=== PATIENT | female | born 2000 | race Two or more races ===

== ENCOUNTER 2021-09-03 09:53 | Emergency (ER) | payer OTHER, SELFPAY ==
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
[2021-09-03 09:55] VITALS: BP 139/83; PULSE 81; RESP 18; TEMP 37; O2SAT 98; BMI 34.9
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
[2021-09-03] MEDS: Ibuprofen 600 MG TABLET PO (11:41)
== END 2021-09-03 12:01 | disposition home or self-care (01) ==
PROVIDERS: Emergency Provider Emergency Medicine
DX: R51.9 Headache, unspecified (principal); S29.012A Strain of muscle and tendon of back wall of thorax, initial encounter; V47.6XXA Car passenger injured in collision with fixed or stationary object in traffic accident, initial encounter; Y93.89 Activity, other specified; Y92.415 Exit ramp or entrance ramp of street or highway as the place of occurrence of the external cause; Y99.9 Unspecified external cause status
CPT/HCPCS: 70450; 99283; 99284

== ENCOUNTER 2024-10-06 02:19 | Emergency (ER) | payer OTHER, SELFPAY ==
--- NOTE | ~2024-10-06 | CT_ITS ---
CLINICAL HISTORY: nausea CT ABDOMEN AND PELVIS WITH CONTRAST COMPARISON: None provided. FINDINGS: No evidence of a bowel obstruction or free air. Portions of the colon are underdistended which limits assessment. No pericolonic inflammation. No evidence of appendicitis. Appendix measures 5 mm in caliber on coronal image 32. Small amount of pelvic free fluid. No loculated fluid collection. A right ovarian follicle measures 1.4 cm on axial image 664 of series 4. Uterus and adnexa are otherwise unremarkable. Urinary bladder is underdistended. The lung bases are unremarkable. No focal liver lesion. Faint density in the gallbladder measures 1.9 cm on axial image 38. Cholelithiasis is questioned. Gallbladder is mildly distended. No pericholecystic inflammation. Common bile duct is not dilated. Stomach is significantly underdistended which precludes accurate assessment. No CT evidence of acute pancreatitis. Spleen is mildly enlarged and measures 11.7 cm on axial image 163. Adrenal glands are unremarkable. Contrast is noted within portions of the renal collecting systems. No hydronephrosis bilaterally. Abdominal aorta is normal in caliber, without evidence of an aneurysm or dissection. Nonenlarged lymph nodes are noted in the mesentery. No evidence of a bowel containing hernia. The bone windows demonstrate no acute abnormalities. IMPRESSION: 1. Faint density in the gallbladder measures 1.9 cm. Cholelithiasis is questioned. A right upper quadrant ultrasound in the ER is advised for further assessment. 2. A right ovarian follicle measures 1.4 cm. There is a small amount of pelvic free fluid, likely physiologic. 3. No evidence of a bowel obstruction or free air. No pericolonic inflammation. No evidence of appendicitis. 4. Mild splenomegaly. 5. Additional findings are detailed above. This document has been electronically signed by: Octavio Dominguez M.D. on 10/06/2024 05:42:10
--- NOTE | ~2024-10-06 | US_ITS ---
EXAMINATION: US ABDOMEN LIMITED CLINICAL INFORMATION: Right upper quadrant pain.. COMPARISON: None available. TECHNIQUE: Real-time ultrasound of the right upper quadrant abdomen using grayscale technique. FINDINGS: Multiple layering intraluminal hyperechoic lesions with posterior shadowing in the gallbladder. The gallbladder wall measures 4 mm in maximal thickness. No pericholecystic fluid collection. Common bile duct measures 3 mm. Right kidney measures 10 cm. Normal echotexture. Normal renal cortical thickness. No hydronephrosis. No gross solid or cystic lesion. No peripancreatic fluid collections. Liver measures 13 cm per technologist. Limited evaluation of the liver demonstrated no gross solid or cystic lesion. No ascites. US/US abdomen limited IMPRESSION: Cholelithiasis and gallbladder wall thickening. Concerning for acute calculus cholecystitis in the correct clinical settings. No gross choledocholithiasis. No ascites. No hydronephrosis, right kidney. Electronically signed by: Bradly Martin MD 10/06/2024 08:29 AM EDT
--- NOTE | 2024-10-06 05:12 | ED_ITS ---
HPI - Abdominal Pain General Chief Complaint: Abdominal Pain Stated Complaint: Abd Pain Time Seen by Provider: 10/06/24 05:23 Source: patient Mode of arrival: ambulatory Limitations: no limitations History of Present Illness ED Provider: Dr. Zoey Cuenca and Ssuana Toledo HPI narrative: I received sign-out from my colleague DAVID Toledo during down time patient came in complaining of acute onset right upper quadrant pain with nausea vomiting after eating fast food. all of patient's labs and imaging pending Related Data Previous Rx's ?Medication ?Instructions ?Recorded amoxicillin 875 mg-potassium 1 tab PO BID #20 tabs 01/21 clavulanate 125 mg tablet ibuprofen 800 mg tablet 800 mg PO Q8H PRN pain #10 t abs 10/06/24 ketorolac 10 mg tablet 10 mg PO TID PRN pain #10 ta bs 10/06/24 ondansetron 4 mg disintegrating 4 mg PO Q6H PRN nausea and 10/06/24 tablet vomiting #14 tabs Allergies Allergy/AdvReac Type Severity Reaction Status Date / Time No Known Allergies Allergy Verified 10/06/24 05:44 Review of Systems Review of Systems Constitutional : No Weight loss, No Fever, No Chills, No Night Sweats, No Fatigue, No Malaise ENT/Mouth : No Hearing loss, No Ear Pain, No Nasal Congestion, No Sinus Pain, No Hoarseness, No sore throat, No Rhinorrhea, No Swallowing Difficulty Eyes: No Eye Pain, No Swelling, No Redness, No Foreign Body, No Discharge, No Vision Changes Cardiovascular : No Chest Pain, No SOB, No Dyspnea on Exertion, No Orthopnea, No Edema, No Palpitations Respiratory : No Cough, No Sputum, No Wheezing, No Smoke Exposure, No Dyspnea Gastrointestinal : Complaining of nausea, vomiting, no diarrhea, complaining of right upper quadrant pain Genitourinary : no irregular bleeding, No Dysuria, No Urinary Frequency, No Hematuria, No Urinary Incontinence, No Urgency, No Flank Pain, No Urinary Flow Changes, No Hesitancy Musculoskeletal : No joint pain, No Myalgias, No Joint Swelling Skin : No Skin Lesions, No rash Neuro : No Weakness, No Numbness, No Paresthesias, No Loss of Consciousness, No Dizziness, No Headache Psych : No Anxiety/Panic, No Depression, No SI/HI/AH/VH, No Social Issues, Heme/Lymph: No Bruising, No Bleeding,No Lymphadenopathy Endocrine : No Polyuria, No Polydipsia, No Temperature Intolerance [facility] Social History Social History Smoked in Last 30 Days: No Use of substances other than those prescribed or required for medical reasons: No Advance Directives: No Advance Directives Information Provided: Yes Do you have a plan to hurt others: No Plan Patient : No Physical Exam ED Vital Signs: Vital Signs - 24 hr 10/06/24 05:45 10/06/24 09:02 Temperature 97.6 F 97.1 F Pulse Rate 95 90 Respiratory Rate 16 14 Blood Pressure 118/67 112/68 Pulse Oximetry 97 99 Oxygen Delivery Method Room Air Room Air BMI result Body Mass Index 33.3 Const Other: Appearance: Alert. Oriented X3. uncomfortable Eyes: Pupils equal, round and reactive to light. ENT: Pharynx normal. Neck: Normal inspection. Neck supple. No lymph nodes noted. No crepitus CVS: Normal heart rate and rhythm. Pulses normal. Normal S1 and S2 Respiratory: No respiratory distress. Breath sounds normal. No Wheezing. No rales Abdomen: actively vomiting, right upper quadrant pain, no rebound or guarding Skin: Skin warm and dry. Normal skin color. Normal skin turgor. Extremities: No lower extremity edema. No Lacerations. No Rash Neuro: Oriented X 3. No motor deficit. No sensory deficit. Moving all extremities. No slurred speech. CN 2 through 12 grossly intact Psych: calm, cooperative, normal affect Course Course Course Narrative: earlier today during downtime, patient received a L of normal saline, Zofran, 4 mg of morphine. Reevaluation(s) Reevaluation #1: I assumed care for this patient at 07:[address] Cuenca, the plan was check ultrasound and re-evaluate the patient. Ultrasound revealed possible acute cholecystitis, patient now is pain-free, repeat abdominal exam shows no abdominal tenderness in particular no RUQ, patient obtain surgical consultation by Fernando Gan please refer to his consultation. To discharge home with Augmentin and pain medication. Time: 12:15 Medical Decision Making Medical Decision Making [facility] Narrative: due to down time, the labs have not crossed over. Printed labs: My interpretation of labs: Patient's white blood cell count 14, hemoglobin 12.2, hematocrit 36.6, platelets 325 Chemistry: Sodium 139, potassium 4.3, chloride 107, bicarb 22, BUN 9, creatinine 0.7. Magnesium 2.0. Normal LFTs, lipase 21, hCG negative CT scan of the abdomen/ pelvis pending CT scan of the abdomen shows possible cholelithiasis. Acute cholecystitis not Suspected. On physical exam, patient states that she feels much better. After the ultrasound, patient can be discharged home and she can follow-up with her PCP. If she has recurrent symptoms, patient may need to be seen by surgery in an outpatient basis and may need surgery. At this time, no need for admission. No longer vomiting, patient feels comfortable sign-out given to my colleague Dr. Barbosa Differential Diagnosis Differential Diagnoses: The differential diagnosis associated with the presentation includes ( acute cholecystitis, pancreatitis, SBO, duodenitis, perforated ulcer) Admission/Observation Consideration of admission/observation: Escalation of care including admission/observation considered ( given patient's level of discomfort,) Lab Data MDM Lab Attestation statement: I reviewed the patient's lab results. 10/06/24 03:35 10/06/24 03:35 Labs: Lab Results 10/06/24 Range/Units 03:35 WBC 14.0 H (4.8-10.8) X10*3/uL RBC 4.48 (4.20-5.50) X10*6/uL Hgb 12.2 (12.0-16.0) g/dl Hct 36.6 L (37.0-47.0) % MCV 81.7 (80.0-98.0) fL MCH 27.2 (27.0-33.0) pg MCHC 33.3 (31.0-35.0) g/dl RDW 13.9 (11.0-16.0) % Plt Count 325 (160-400) X10*3/uL MPV 9.9 (9.4-12.3) fL Immature Gran % (Auto) 0.4 (0.0-0.4) % Neut % (Auto) 85.3 H (45-73) % Lymph % (Auto) 9.9 L (20-40) % [place] % (Auto) 3.9 (2-11) % Eos % (Auto) 0.1 (0-4) % Baso % (Auto) 0.4 (0-2) % Lymph # (Auto) 1.4 (1.2-4.9) X10*3/uL [place] # (Auto) 0.5 (0.1-1.2) X10*3/uL Eos # (Auto) 0.0 (0.0-0.4) X10*3/uL Baso # (Auto) 0.1 (0.0-0.2) X10*3/uL Abs Immat Gran (auto) 0.06 H (0.00-0.03) X10*3/uL Absolute Neuts (auto) 12.0 H (2.0-8.3) x10*3/uL Absolute Nucleated RBC 0.000 (0.0-0.012) X10*3/uL Nucleated RBC % (auto) 0.0 (0.0-0.2) /100WBC Sodium 139 (135-145) mmol/L Potassium 4.3 (3.3-5.1) mmol/L Chloride 107 (96-108) mmol/L Carbon Dioxide 22 (22-29) mmol/L Anion Gap 14 (12-20) BUN 9 (9-16) mg/dL Creatinine 0.70 (0.5-1.4) mg/dL Estim Creat Clear Calc 137.9 Estimated GFR > 60 Random Glucose 127 H (60-115) mg/dL Calcium 8.9 (8.4-10.2) mg/dL Magnesium 2.0 (1.6-2.6) mg/dL Total Bilirubin 0.3 (0.0-1.0) mg/dL AST 20 (5-31) U/L ALT 18 (0-31) U/L Alkaline Phosphatase 54 (39-117) U/L Total Protein 7.5 (6.5-8.0) g/dL Albumin 4.7 (3.5-5.0) g/dL Lipase 21 (8-78) U/L Beta HCG, Quant < 2 mIU/mL Independent Interpretation I performed an independent interpretation of an: CT Scan Radiology Impression Discussion of test interpretation with radiology: I have reviewed the radiologist's reading. Radiologist Impression: faint density in the gallbladder measuring 1.9 cm, possible cholelithiasis. Ultrasound recommended. There is a right ovarian follicle measuring 1.4 cm. Independent Historian Clinical information obtained from an independent historian. History obtained from or confirmed by: Parent Medications Administered Discontinued Medications Generic Name Dose Route Start Last Admin Trade Name Freq PRN Reason Stop Dose Admin Iohexol 100 ml 10/06/24 09:07 10/06/24 09:07 Iohexol 350 Mg/Ml 100 Ml Infus..Btl IV 10/06/24 09:08 85 ml ONCE ONE Administration Ketorolac Tromethamine 30 mg 10/06/24 05:13 10/06/24 05:40 Ketorolac Tromethamine 30 Mg/Ml Vial IVPUSH 10/06/24 05:14 30 mg ONCE ONE Administration Prochlorperazine Edisylate 10 mg 10/06/24 05:13 10/06/24 05:41 Prochlorperazine Edisylate 10 Mg/2 Ml Vial IVPUSH 10/06/24 05:14 10 mg ONCE ONE Administration Critical Care Time Critical Care Time Critical Care Time: Yes Total Critical Care Time: 60 Attestation: I have personally provided critical care time. Time includes review of lab data, radiology results, discussion with consultants, and monitoring for potential decompensation. Intervention performed as documented. Discharge Plan Discharge Clinical Impression: Cholelithiasis, Nausea & vomiting Patient Disposition: Home, Self-Care Instructions: Acute Nausea and Vomiting (ED), Acute Abdominal Pain (ED) Prescriptions: New ondansetron 4 mg tablet,disintegrating 4 mg PO Q6H PRN (Reason: nausea and vomiting) Qty: 14 0RF ketorolac 10 mg tablet 10 mg PO TID PRN (Reason: pain) Qty: 10 0RF amoxicillin-pot clavulanate 875-125 mg tablet 1 tab PO BID Qty: 20 0RF ibuprofen 800 mg tablet 800 mg PO Q8H PRN (Reason: pain) Qty: 10 0RF Referrals: Bc Early MD [Physician, General Surgery] Stand Alone Forms: Work/School Release Print Language: Mauritian
[2024-10-06 05:44] VITALS: BMI 33.3
[2024-10-06 05:45] VITALS: BP 118/67; PULSE 95; RESP 16; TEMP 36.4; O2SAT 97
[2024-10-06 05:46] LABS: MANUAL DIFF FLAG NO
[2024-10-06 05:49] LABS: Hematocrit 36.6 % (37.0-47.0); Hemoglobin 12.2 g/dl (12.0-16.0); Imm Gran Abs Auto 0.06 X10*3/uL (0.00-0.03); Imm Gran Pct Auto 0.4 % (0.0-0.4); Lymphocytes Absolute Auto 1.4 X10*3/uL (1.2-4.9); Mean Corpuscular HGB Conc 33.3 g/dl (31.0-35.0); Mean Corpuscular Hemoglobin 27.2 pg (27.0-33.0); Mean Corpuscular Volume 81.7 fL (80.0-98.0); NRBC Abs Auto 0.000 X10*3/uL (0.0-0.012); NRBC Pct Auto 0.0 /100WBC (0.0-0.2); Platelet Count 325 X10*3/uL (160-400); Red Blood Count 4.48 X10*6/uL (4.20-5.50); White Blood Count 14.0 X10*3/uL (4.8-10.8)
[2024-10-06 06:09] LABS: Alanine Aminotransferase 18 U/L (0-31); Albumin Level 4.7 g/dL (3.5-5.0); Alkaline Phosphatase 54 U/L (39-117); Anion Gap 14 (12-20); Aspartate Amino Transferase 20 U/L (5-31); Blood Urea Nitrogen 9 mg/dL (9-16); Calcium 8.9 mg/dL (8.4-10.2); Carbon Dioxide 22 mmol/L (22-29); Chloride 107 mmol/L (96-108); Creatinine Clr Calc Pharmacy 137.9; Estimated Glomerular Filt Rate > 60; Lipase 21 U/L (8-78); Magnesium 2.0 mg/dL (1.6-2.6); Potassium 4.3 mmol/L (3.3-5.1); Sodium 139 mmol/L (135-145); Total Protein 7.5 g/dL (6.5-8.0)
[2024-10-06 09:02] VITALS: BP 112/68; PULSE 90; RESP 14; TEMP 36.2; O2SAT 99
[2024-10-06] MEDS: iohexoL 350 MG/ML 100 ML INFUS..BTL IV (09:07)
--- NOTE | 2024-10-06 09:35 | P.CONGS_ITS ---
History of Present Illness Consult details Consult date: 10/06/24 Narrative: 24-year-old generally healthy female presenting to the emergency department with abdominal pain in the right upper quadrant that began at midnight after eating chicken nuggets. She has associated nausea and vomiting which is why she came to the emergency department. She rates the pain an 8/10, denies pain when she is given pain medication. She is currently denying pain or nausea. She does endorse history of this kind of pain once before which resolved on its own. She denies fevers or chills. On lab drawn in the ED patient was found to have leukocytosis 14, had a abdominal ultrasound suggestive of cholelithiasis, she had a negative sonographic Hill sign. She reports passing bowel movements this morning. She has had no further episodes of vomiting She denies smoking, alcohol use, recreational drug use. Denies history of surgery. Denies any medication on a daily basis. Denies allergies Meds Allergies Allergy/AdvReac Type Severity Reaction Status Date / Time No Known Allergies Allergy Verified 10/06/24 05:44 Physical Exam 2 Vital Signs: Vital Signs: Last Vital Signs Temp 97.1 F 10/06/24 09:02 Pulse 90 10/06/24 09:02 Resp 14 10/06/24 09:02 BP 112/68 10/06/24 09:02 Pulse Ox 99 10/06/24 09:02 O2 Del Method Room Air 10/06/24 09:02 BMI result Body Mass Index 33.3 Const: General: comfortable and no acute distress O rientation/consciousness: patient oriented x3 Resp: Effort & Inspection: normal respiratory effort and able to speak in complete sentences GI: Inspection: No distended Palpation (GI): Soft to palpation, not firm, Tenderness to palpation present (GI) (Very mild right upper quadrant tenderness) Hill's sign negative, no guarding and not rigid Neuro: General: patient oriented x3 Results Labs 10/06/24 03:35 10/06/24 03:35 Labs: Abnormal lab results 10/06/24 Range/Units 03:35 WBC 14.0 H (4.8-10.8) X10*3/uL Hct 36.6 L (37.0-47.0) % Neut % (Auto) 85.3 H (45-73) % Lymph % (Auto) 9.9 L (20-40) % Abs Immat Gran (auto) 0.06 H (0.00-0.03) X10*3/uL Absolute Neuts (auto) 12.0 H (2.0-8.3) x10*3/uL Random Glucose 127 H (60-115) mg/dL Short CBC 10/06/24 Range/Units 03:35 WBC 14.0 H (4.8-10.8) X10*3/uL Hgb 12.2 (12.0-16.0) g/dl Hct 36.6 L (37.0-47.0) % Plt Count 325 (160-400) X10*3/uL BMP 10/06/24 03:35 Sodium 139 Potassium 4.3 Chloride 107 Carbon Dioxide 22 BUN 9 Creatinine 0.70 Calcium 8.9 Liver Function 10/06/24 Range/Units 03:35 Total Bilirubin 0.3 (0.0-1.0) mg/dL AST 20 (5-31) U/L ALT 18 (0-31) U/L Alkaline Phosphatase 54 (39-117) U/L Albumin 4.7 (3.5-5.0) g/dL All other labs normal. Assessment and Plan (1) Cholelithiasis: Qualifiers: Biliary obstruction: without biliary obstruction Cholecystitis presence: without cholecystitis Cholelithiasis location: gallbladder Qualified Code(s): K80.20 - Calculus of gallbladder without cholecystitis without obstruction Status: Acute (2) Nausea & vomiting: Qualifiers: Vomiting type: unspecified Qualified Code(s): R11.2 - Nausea with vomiting, unspecified Status: Acute Plan 24-year-old generally healthy female presenting to the ED with sudden onset of RUQ pain with associated nausea and vomiting that began last night after eating fast food. the pain was 8/10. she reports one episode of this in the past. On labs in the ED she was found to have leukocytosis 14.0. An ultrasound of the abdomen was significant for cholecystitis without evidence of acute cholcystitis, negative sonographic hill sign. Currently she is not experiencing pain or nausea. On exam her abdomen was soft and benign, very mild tenderness in the RUQ. Negative hill sign. The case was discussed with attending physician Dr. Early and the ED provider. We also discussed options with the patient including admission for monitoring her symptoms, or discharge and follow up with general surgery as an outpatient for possible cholecystectomy in the future. The patient expressed that she would like to be discharged and f/u as outpatient. I counselled her on return precautions including, fever, increased or persistent pain, nausea or vomiting. patient was agreeable to this plan, we will send home with script for augmentin and pain control. Patient will follow up in the office. Procedures Date of Service Date of Service: 10/06/24
[2024-10-06 12:53] VITALS: BP 99/66; PULSE 98; RESP 18; O2SAT 99
== END 2024-10-06 12:59 | disposition home or self-care (01) ==
PROVIDERS: Emergency Provider Emergency Medicine; PCP Internal Medicine
DX: K80.20 Calculus of gallbladder without cholecystitis without obstruction (principal); R11.2 Nausea with vomiting, unspecified; R10.11 Right upper quadrant pain; Z79.899 Other long term (current) drug therapy
CPT/HCPCS: 36415; 74177; 76705; 80053; 83690; 83735; 84702; 85025; 96374; 96375; 99284; 99291; J0737; J1885; Q9967

== ENCOUNTER → 2024-10-06 03:02 | Outpatient (BNV) | payer OTHER, SELFPAY | PROVIDERS: Emergency Provider Emergency Medicine; PCP Internal Medicine | DX: K80.20 Calculus of gallbladder without cholecystitis without obstruction (principal); R11.2 Nausea with vomiting, unspecified | CPT/HCPCS: 99283 ==

== ENCOUNTER → 2024-10-06 06:56 | Outpatient (BNV) | payer OTHER, SELFPAY | PROVIDERS: Emergency Provider Emergency Medicine; PCP Internal Medicine; Visit Provider Radiology Diagnostic Radiology | DX: K82.8 Other specified diseases of gallbladder (principal); K80.20 Calculus of gallbladder without cholecystitis without obstruction; N83.01 Follicular cyst of right ovary | CPT/HCPCS: 74177; 76705 ==